=== PATIENT | male | born 1955 | race Caucasian/White ===

== ENCOUNTER → 2017-04-16 08:09 | Outpatient (CLI) | payer BC ==
[~2017-04-16 08:09] MED LIST: ATARAX 25 MG TA25 MG PO; ELIQUIS2.5 MG PO; KEFLEX500 MG PO; OXYCODONE HCL5 MG PO; TRIAMTERENE-HCT1 TA1 PO; UROCIT-K10 MEQ PO; VOLTAREN75 MG PO
[2017-05-25 15:54] VITALS: BMI 42.3
== END | disposition home or self-care (01) ==
LOC: D.RAD 04-12 10:00 → D.SP 04-12 10:00 → D.OPS 08:09 → D.RAD 09:00 → D.OPS 09:00
DX: M16.12 Unilateral primary osteoarthritis, left hip (principal); Z01.812 Encounter for preprocedural laboratory examination

== ENCOUNTER 2017-04-25 05:40 | Outpatient (CLI) | payer BC ==
[2017-04-24 12:24] LABS: HEMATOCRIT 49.3 % (42.0-54.0); HEMOGLOBIN 16.4 g/dL (13.5-17.5); MCH 30.6 pg (26.0-34.0); MCHC 33.3 g/dL (31.0-37.0); MEAN PLATELET VOLUME 9.6 fL (7.4-10.4); RBC 5.36 10x6/uL (4.20-6.10); RDW 12.8 % (11.5-14.5); WBC 6.9 10x3/uL (4.8-10.8)
[2017-04-24 12:42] LABS: INR 0.97 (0.85-1.17); PROTIME 12.7 SECONDS (11.6-15.0)
[2017-04-24 12:58] LABS: CALC OSMOLALITY 280 mosm/kg (275-300); CALCIUM 8.9 mg/dL (8.5-10.1); CARBON DIOXIDE 31.7 mmol/L (21.0-32.0); CHLORIDE - SERUM 100 mmol/L (98-107); CREATININE - SERUM 0.9 mg/dL (0.6-1.3); GLUCOSE 119 mg/dL (74-106); POTASSIUM - SERUM 4.1 mmol/L (3.5-5.1); SODIUM 139 mmol/L (136-145); UREA NITROGEN 19 mg/dL (7-18); eGFR NON AFRICAN AMERICAN > 90 mL/min (90-120)
[~2017-04-25] VITALS: Ht 185.4 cm; Wt 145.1 kg
--- NOTE | ~2017-04-25 | HEMODYNAMI ---
PATIENT:CHEO LAW MEDICAL RECORD: [id number] : 55 LOCATION:[facility] ADMISSION DATE: 04/25/17 Generatedon:04/25/20179:33 Patient name: CHEO LAW Patient #: [id number] SSN: DO B: 1955 Date of study: 04/25/2017 Page: Of Hemodynamic Procedure Report Patient Data Patient Demographics Procedure consent was obtained First Name: CHEO Gender: Male Last Name: ANI : 1955 Patient #: [id number] Age: 61 year(s) Race: Unknown Additional ID: [id number] Contact details Address: [address] [place] [address] State: [place] City: [place] Zip code: [address] Past Medical History Allergies: No known allergies Admission Admission Data Admission Date: 04/25/2017 Admission Time: 5:40 Procedure Procedure Types Cath Procedure Peripheral Cath Diagnostic Procedure Cath Peripheral Nephro Nephrostomy w/ Ureteral Stent Procedure Description Procedure Date Procedure Date: 04/25/2017 Procedure Start Time: 8:36 Procedure Staff Name Function Ricco Tamayo MD Performing Physician Marion Montesinos RT Monitor Tu Rubio RT Scrub Martha Robb RN Nurse Marion Montesinos RT Sales Service Professional Procedure Data Cath Procedure Fluoroscopy Diagnostic fluoroscopy Total fluoroscopy Time: time: 14.2 min 14.2 min Diagnostic fluoroscopy Total fluoroscopy dose: 816 dose: 816 mGy mGy Contrast Material Contrast Material Type Amount (ml) Isovue 300 55 Procedure Medications Medication Administration Route Dosage Oxygen NC 3 l/min Lidocaine 1% 20 Heparin Flush Bag added to field 1 bags (1000units/500ml NS) Versed I.V. 1 mg Fentanyl I.V. 50 mcg Versed I.V. 1 mg Fentanyl I.V. 50 mcg Versed I.V. 1 mg Fentanyl I.V. 50 mcg Versed I.V. 1 mg Fentanyl I.V. 50 mcg Hemodynamics Rest Pre Cath Intra NCS Post Cath Vital Signs Time Heart Resp SPO2 etCO2 NIBP (mmHg) Rhythm Pain Sedation Rate (ipm) (%) (mmHg) Status Level (bpm) 8:16:24 79 14 96 48.1 131/94(122) NSR 0 (11) 10(A) , No pain 8:21:23 83 8 96 38.3 Measuring NSR 0 (11) 10(A) , No pain 8:21:27 5 96 45.9 125/92(114) NSR 0 (11) 10(A) , No pain 8:25:31 102 21 96 45.1 128/90(104) NSR 0 (11) 10(A) , No pain 8:29:35 78 20 95 48.9 146/96(119) NSR 0 (11) 10(A) , No pain 8:34:34 82 20 99 46.7 Measuring NSR 0 (11) 10(A) , No pain 8:34:52 82 19 98 43.6 148/109(125) NSR 0 (11) 10(A) , No pain 8:39:06 71 18 98 53.4 162/109(138) NSR 0 (11) 10(A) , No pain 8:43:30 14 97 70.8 169/103(147) NSR 0 (11) 10(A) , No pain 8:47:57 85 14 96 51.2 166/112(138) NSR 0 (11) 10(A) , No pain 8:52:23 82 14 98 61.7 167/105(141) NSR 0 (11) 10(A) , No pain 8:56:45 81 16 97 61.7 162/112(144) NSR 0 (11) 10(A) , No pain 9:01:09 87 16 98 51.2 156/111(130) NSR 0 (11) 10(A) , No pain 9:05:29 89 17 45.2 152/115(127) NSR 0 (11) 10(A) , No pain 9:09:50 90 16 96 52.7 164/113(142) NSR 0 (11) 10(A) , No pain 9:14:14 83 13 98 63.2 177/119(143) NSR 0 (11) 10(A) , No pain 9:18:42 87 16 98 54.1 189/112(134) NSR 0 (11) 10(A) , No pain 9:23:12 84 17 98 54.1 164/107(138) NSR 0 (11) 10(A) , No pain 9:27:37 90 13 94 50.4 180/119(146) NSR 0 (11) 10(A) , No pain 9:32:03 94 14 97 38.4 179/118(155) NSR 0 (11) 10(A) , No pain Medications Time Medication Route Dose Verified Delivered Reason Notes Effec tiveness by by 8:25:39 Oxygen NC 3 Martha Martha used for l/min Cezar Cezar equipment service associate RN 8:26:01 Lidocaine 1% 20ml Martha Ricco for local vial Cezar Tamayo anesthetic RN 8:26:31 Heparin Flush added 1 Martha Ricco used for Bag to bags Cezar Tamayo procedure (1000units/500ml field RN NS) 8:35:37 Versed I.V. 1 mg Ricco Martha for Tamayo Cezar RN sedation 8:35:50 Fentanyl I.V. 50 Ricco Martha for mcg Tamayo Cezar RN sedation 8:39:15 Versed I.V. 1 mg Ricco Martha for Tamayo Cezar RN sedation 8:39:25 Fentanyl I.V. 50 Ricco Martha for mcg Tamayo Cezar RN sedation 9:09:28 Versed I.V. 1 mg Ricco Martha for Tamayo Cezar RN sedation 9:09:36 Fentanyl I.V. 50 Ricco Martha for mcg Tamayo Cezar RN sedation 9:26:39 Versed I.V. 1 mg Ricco Martha for Tamayo Cezar RN sedation 9:26:49 Fentanyl I.V. 50 Ricco Martha for mcg Tamayo Cezar RN sedation Procedure Log Time Note 7:33:30 Use device set IR Diagnostic 7:33:57 KIT, INTRODUCER ACCUSTICK II W/C opened to sterile field. 7:33:58 Sterile Angiographic Pack opened to sterile field. 7:33:59 Bag Decanter opened to sterile field. 7:59:53 Time tracking: Regular hours 8:06:54 Plan of Care:Hemodynamics will remain stable., Cardiac rhythm will remain stable., Comfort level will be maintained., Respiratory function will remain adequate., Patient/ family verbilizes understanding of procedure., Procedure tolerated without complication., Recovers from procedure without complications.. 8:07:00 Patient received from Outpatients to IR Alert and oriented. Tansferred to table prone position. 8:07:10 Signed procedure consent form obtained from patient. 8:07:17 H&P Date Dictated: 04/25/2017 Within 30 days and on chart.. 8:07:23 Pre-procedure instructions explained to patient. 8:07:23 Pre-op teaching completed and patient verbalized understanding. 8:07:26 Family in waiting room. 8:07:29 Patient NPO since Midnight. 8:07:38 Patient allergic to No known allergies 8:07:49 Is the patient allergic to Iodine/contrast media? No. 8:08:25 Is patient on blood thinner?No 8:08:28 Patient diabetic? No. 8:08:32 8:08:33 ----Pre-sedation anethsthesia assessment.---- 8:08:37 Previous problem with sedation/anesthesia? No ? 8:08:42 Snore? Yes 8:08:44 Sleep apnea? Yes 8:08:46 Deviated septum? No 8:08:49 Opens mouth fully? Yes 8:08:51 Sticks out tongue? Yes 8:08:54 Airway obstruction? No ? 8:08:59 Dentures? No ? 8:09:10 IV patent on arrival in right hand with 0.9% NaCl at [facility]. 8:09:33 Left abdomen area was prepped with chlora-prep and draped in sterile fashion 8:09:37 Alarms reviewed by Alexia Wing 8:09:38 Sharps counted by scrub and verified 8:09:39 8:15:29 ECG and BP/O2 sat monitors applied to patient. 8:15:30 Vital chart was started 8:19:34 Full Disclosure recording started 8:19:36 8::39 Oxygen 3 l/min NC was administered by Martha Robb RN; used for procedure; 8:26:01 Lidocaine 1% 20ml vial was administered by Ricco Tamayo MD; for local anesthetic; 8::31 Heparin Flush Bag (1000units/500ml NS) 1 bags added to field was administered by Ricco Tamayo MD; used for procedure; 8:34:13 Physician arrived 8:34:22 --------ALL STOP TIME OUT------ 8:34:24 Final Timeout: patient, procedure, and site verified with staff and physician. All members of the team are in agreement. 8:35:34 Sedation plan: IV Moderate Sedation Medication:Versed, Fentanyl 8:35:37 Versed 1 mg I.V. was administered by Martha Robb RN; for sedation; 8:35:40 Procedure started. 8:35:50 Fentanyl 50 mcg I.V. was administered by Martha Robb RN; for sedation; 8:36:00 Local anesthetic to lt renal area with Lidocaine 1% by Ricco Tamayo MD.INITIAL ACCESS ONLY 8:36:25 Terumo 4FR Straight 65CM glide catheter opened to sterile field. 8:39:15 Versed 1 mg I.V. was administered by Martha Robb RN; for sedation; 8:39:25 Fentanyl 50 mcg I.V. was administered by Martha Robb RN; for sedation; 9:03:08 EV3 NITINOL .018 80CM guide wire opened to sterile field. 9:09:28 Versed 1 mg I.V. was administered by Martha Robb RN; for sedation; 9:09:36 Fentanyl 50 mcg I.V. was administered by Martha Robb RN; for sedation; 9:26:34 Procedure ended.(Physican Out) 9:26:39 Versed 1 mg I.V. was administered by Martha Robb RN; for sedation; 9:26:49 Fentanyl 50 mcg I.V. was administered by Martha Robb RN; for sedation; 9:26:54 Fluoroscopy time 14.20 minutes. 9:27:00 Fluoroscopy dose: 816 mGy 9:27:00 Flurop Dose total: 816 9:27:04 Contrast amount:Isovue 300 55ml. 9:27:29 Procedure and supply charges have been captured, reviewed, submitted and are correct. 9:33:49 Vital chart was stopped Device Usage Item Name Manufacture Quantity Catalog Hospital Part Current Minimal Lot# / Number Charge Number Stock Stock Serial# Code Abhay WESLEY [id number] 5 INTRODUCER Scientific ACCUSTICK II W/C Sterile Cardinal 1 [id number] 5 Angiographic Health Pack Bag Decanter Microtek 1 2001S [id number] 5 (2001S) [employer] Terumo 4FR Terumo 1 [id number] 5 Straight 65CM glide catheter EV3 NITINOL Ev3 1 [id number] 5 .018 80CM guide wire Signature Audit [place] Stage Time Signature Unsigned Intra-Procedure 04/25/2017 Marion Montesinos 9:33:46 AM RT(R) Signatures Monitor : Marion Montesinos RT Signature : Date : Time : [facility] [address] [facility] [place] [id number]
[~2017-04-25 05:40] MED LIST changes: -ATARAX 25 MG TA25 MG PO; -ELIQUIS2.5 MG PO; -KEFLEX500 MG PO; -OXYCODONE HCL5 MG PO; -UROCIT-K10 MEQ PO
[2017-04-25 07:44] VITALS: BP 95/64; Ht 185.4 cm; Wt 145.1 kg
--- NOTE | 2017-04-25 12:17 | NUR ---
LEFT FLANK DRESSING C/D/I. C/O LEFT TESTICLE PAIN, DR ZAMUDIO CALLED AND INFORMED OF PAIN POST NEPRHO TUBE PLACEMENT AND UPCOMING SURGERY, ORDERS RECEIVED.
--- NOTE | 2017-04-25 14:00 | NUR ---
ALL VITAL SIGNS AND ASSESSMENT CHARTED UNDER OR NOTES. DR KLEIN IN, STATES THE KIDNEY STONE CAN DISSOLVE WITH MEDICATION. PT AGREES TO WAIT ON SURGERY AND TRY MEDICINE FIRST. WIRE REMOVED PER DR KLEIN AND BANDAID APPLIED. NO BLEEDING NOTED. IV REMOVED INTACT. DISCHARGE INSTRUCTIONS GIVEN.
== END 2017-04-25 14:20 | disposition home or self-care (01) ==
LOC: D.OPS 05:40 → EDSTATUS 08:00 → D.SP 08:00 → D.OPS 08:00 → D.PAN 08:00 → D.OPS 10:15
PROVIDERS: Anesthesiology
DX: N20.1 Calculus of ureter (principal); Z01.812 Encounter for preprocedural laboratory examination

== ENCOUNTER → 2017-05-09 13:44 | Outpatient (CLI) | payer BC ==
[2017-04-25 07:44] VITALS: BMI 42.3
[~2017-05-09 13:44] MED LIST changes: +ATARAX 25 MG TA25 MG PO; +ELIQUIS2.5 MG PO; +KEFLEX500 MG PO; +OXYCODONE HCL5 MG PO; +UROCIT-K10 MEQ PO
== END | disposition home or self-care (01) ==
LOC: D.LABREF 13:44
DX: M16.12 Unilateral primary osteoarthritis, left hip (principal); Z11.8 Encounter for screening for other infectious and parasitic diseases

== ENCOUNTER → 2017-05-16 09:06 | Outpatient (CLI) | payer BC ==
[2017-04-25 07:44] VITALS: BMI 42.3
== END | disposition home or self-care (01) ==
LOC: D.CT 09:06
DX: N20.0 Calculus of kidney (principal)

== ENCOUNTER 2017-05-16 10:00 | Inpatient (IN) | payer BC ==
[~2017-05-16] VITALS: Ht 185.4 cm; Wt 145.5 kg
--- NOTE | ~2017-05-16 | OP ---
PATIENT NAME: CHEO LAW MEDICAL RECORD: [id number] :55 LOCATION:[id number] ADMISSION DATE:05/25/17 SURGEON: RICCO ELLISON DO DATE OF OPERATION: 05/25/2017 PROCEDURE PERFORMED: Left total hip arthroplasty. PREOPERATIVE DIAGNOSIS: Severe left hip osteoarthritis. POSTOPERATIVE DIAGNOSIS: Severe left hip osteoarthritis. INDICATIONS: Mr. Law is a 61-year-old male that had left hip pain for quite some time. He has been struggling with this and even had an intra-articular hip injection that did not help approximately 6 weeks ago and it did not help his pain whatsoever. He is tired of dealing with pain and wanted something done. His BMI was right at my cutoff, which is 40 and he has BMI of 42. I told him he needs to lose some weight and as long as he showed effort of losing weight, I would do his hip. I saw him back after hip injections and this had happened so we decided to his hip. He is aware of the risks and benefits of procedure. Due to his weight, he has increased risk for infection and difficulty of the case. SURGEON: Ricco Ellison DO COMPLICATIONS: None. ESTIMATED BLOOD LOSS: 250 mL. DESCRIPTION OF PROCEDURE: The patient was taken to the operative suite, laid in supine position, given 2 grams Ancef preoperatively. The timeout was performed and everyone was in agreement to the correct side, site, and patient. After the timeout was performed, the patient was then given antibiotics. The patient was given a gram of TXA. He was prepped and draped in the left hip in sterile fashion and the incision then commenced over the tensor fascia jae. The fascia was raised anteriorly, the muscle belly posteriorly, and then the interval just below the rectus was incised and the ascending branch of the lateral femoral circumflex artery as well as the 2 concomitant veins were tied off and then the Aquamantys was used on them to coagulate them and then that was cut. The hip capsule was then exposed and Hohmanns were used around the neck of the femur and a capsulotomy was performed and the retractor was then placed inside the knee capsule and the femoral neck was cut. After the femoral neck was cut, the head was removed with somewhat of difficulty due to the large osteophytes around the hip and on the femoral head itself. Once this was removed, we then reamed the acetabulum, first medializing and then up to a size 56. This was done under fluoroscopy. A 56 cup was put in, a dual mobility cup was put in and seen to be in very good position on x-ray. The attention was then drawn to the femur and the femur was exposed and broaching was somewhat difficult due to the size of the patient's stomach. We did broach up to a 20 and got the hip reduced for -6 neck and a 28 head. This seemed to be a decent length and once this was done, we put in the implant. The implants were put in and the hip was reduced. X-rays were taken and seemed to be in good length on the femur and the wound was irrigated thoroughly. Brisk bleeding was seen at that time. Vancomycin powder was then placed into the wound as well as Josefa. The hip capsule was not closed due to the stability of the hip. X-rays were taken of the femur as well and no fractures were seen in the femur. Once this was done and vancomycin and Josefa was put in, the tensor fascia jae fascia was closed with a #1 Vicryl and OPERATIVE REPORT [id number] CHEO LAW [id number] and a running stitch and then the skin after being irrigated was closed with 2-0 Vicryl in an inverted interrupted fashion and Prineo was placed on the skin. Adaptic, Telfa, and Tegaderm were placed over the wound. The patient was awakened and taken to recovery in stable condition. Blood loss approximately 250 mL. TRANSINT:[id number] Voice Confirmation ID: [id number] DOCUMENT ID: [id number] RICCO ELLISON DO at 1729 CC: [id number] DICTATION DATE: 05/25/17 1432 AGRICULTURE CONSULTANT: 05/25/[address] [facility] [facility] [place] [id number] [place] [id number]
[~2017-05-16 10:00] MED LIST changes: -ATARAX 25 MG TA25 MG PO; -ELIQUIS2.5 MG PO; -KEFLEX500 MG PO; -OXYCODONE HCL5 MG PO; -UROCIT-K10 MEQ PO
[2017-05-22] MEDS ORDERED: UROCIT-K10 MEQ PO (14:46)
[2017-05-23 11:53] LABS: BASOPHILS 0.3 % (0-2); EOSINOPHILS 1.4 % (0-7); HEMATOCRIT 50.1 % (42.0-54.0); IMMATURE GRANULOCYTES 0.3 % (0-5); LYMPHOCYTES 21.7 % (15-50); MCH 31.1 pg (26.0-34.0); MCHC 33.9 g/dL (31.0-37.0); MCV 91.6 fL (80.0-100.0); MONOCYTES 8.3 % (2-11); RBC 5.47 10x6/uL (4.20-6.10); RDW 12.7 % (11.5-14.5); WBC 7.9 10x3/uL (4.8-10.8)
[2017-05-23 11:54] LABS: PLATELET COUNT 200 10x3/uL (130-400)
[2017-05-23 11:58] LABS: INR 0.94 (0.85-1.17); PROTIME 12.2 SECONDS (11.6-15.0)
[2017-05-23 12:01] LABS: CALC OSMOLALITY 283 mosm/kg (275-300); CALCIUM 9.6 mg/dL (8.5-10.1); CARBON DIOXIDE 34.3 mmol/L (21.0-32.0); CHLORIDE - SERUM 100 mmol/L (98-107); GLUCOSE 162 mg/dL (74-106); SODIUM 140 mmol/L (136-145); UREA NITROGEN 16 mg/dL (7-18); eGFR NON AFRICAN AMERICAN 81 mL/min (90-120)
[2017-05-23 12:06] LABS: APPEARANCE CLEAR (CLEAR); COLOR YELLOW (YELLOW)
[2017-05-23 12:07] LABS: BILIRUBIN NEGATIVE (NEGATIVE); GLUCOSE NEGATIVE (NEGATIVE); KETONE NEGATIVE (NEGATIVE); NITRITE NEGATIVE (NEGATIVE); PROTEIN NEGATIVE (NEGATIVE); UROBILINOGEN NORMAL (NORMAL)
[2017-05-25 08:46] VITALS: BP 111/54; BMI 42.0
[2017-05-25 15:49] VITALS: BP 140/86
[2017-05-25 15:54] VITALS: BP 140/86; Ht 185.4 cm; Wt 145.5 kg
[2017-05-25 21:23] VITALS: BP 133/79
[2017-05-26 01:06] VITALS: BP 112/62
[2017-05-26 04:46] VITALS: BP 129/72
[2017-05-26 07:31] LABS: BASOPHILS 0 % (0-2); EOSINOPHILS 0 % (0-7); HEMATOCRIT 38.6 % (42.0-54.0); HEMOGLOBIN 13.1 g/dL (13.5-17.5); IMMATURE GRANULOCYTES 0.2 % (0-5); LYMPHOCYTES 8.4 % (15-50); MCH 30.5 pg (26.0-34.0); MCHC 33.9 g/dL (31.0-37.0); MCV 89.8 fL (80.0-100.0); MEAN PLATELET VOLUME 9.4 fL (7.4-10.4); MONOCYTES 10.1 % (2-11); NEUTROPHILS 81.3 % (40-80); PLATELET COUNT 185 10x3/uL (130-400); RDW 12.9 % (11.5-14.5); WBC 12.9 10x3/uL (4.8-10.8)
[2017-05-26 08:08] LABS: ALBUMIN 3.1 g/dL (3.4-5.0); ANION GAP 11.6 mmol/L (8-16); BILIRUBIN - TOTAL 0.47 mg/dL (0.2-1.3); CALCIUM 8.6 mg/dL (8.5-10.1); CARBON DIOXIDE 28.8 mmol/L (21.0-32.0); CREATININE - SERUM 1.3 mg/dL (0.6-1.3); POTASSIUM - SERUM 4.4 mmol/L (3.5-5.1); PROTEIN - SERUM 5.8 g/dL (6.4-8.2)
[2017-05-26 08:45] VITALS: BP 112/59
[2017-05-26 12:45] VITALS: BP 125/76
[2017-05-26 17:29] VITALS: BP 118/72
[2017-05-27] VITALS: BP 130/81
[2017-05-27 04:00] VITALS: BP 118/70
[2017-05-27 05:08] LABS: HEMATOCRIT 37.4 % (42.0-54.0); HEMOGLOBIN 12.2 g/dL (13.5-17.5); MCHC 32.6 g/dL (31.0-37.0); MEAN PLATELET VOLUME 9.4 fL (7.4-10.4); RBC 4.06 10x6/uL (4.20-6.10); RDW 13.2 % (11.5-14.5)
[2017-05-27 05:12] LABS: MCV 92.1 fL (80.0-100.0); WBC 9.4 10x3/uL (4.8-10.8)
[2017-05-27 05:16] LABS: HEMOGLOBIN A1C 7.2 % (4.8-6.0)
[2017-05-27 05:24] LABS: CALC OSMOLALITY 286 mosm/kg (275-300); CALCIUM 8.6 mg/dL (8.5-10.1); CARBON DIOXIDE 34.7 mmol/L (21.0-32.0); CHLORIDE - SERUM 102 mmol/L (98-107); GLUCOSE 177 mg/dL (74-106); POTASSIUM - SERUM 4.1 mmol/L (3.5-5.1); SODIUM 140 mmol/L (136-145); UREA NITROGEN 23 mg/dL (7-18); eGFR NON AFRICAN AMERICAN 81 mL/min (90-120)
[2017-05-27] MEDS ORDERED: ELIQUIS2.5 MG PO (08:52)
[2017-05-27] MEDS ORDERED: OXYCODONE HCL5 MG PO (08:53)
[2017-05-27] MEDS ORDERED: ATARAX 25 MG TA25 MG PO (08:53)
[2017-05-27] MEDS ORDERED: KEFLEX500 MG PO (08:54)
[2017-05-27 10:47] VITALS: BP 100/61
== END 2017-05-27 17:00 | disposition home health service (06) | DRG 470 ==
LOC: D.SDCHOLD 05-25 05:14 → D.MS 05-25 15:10
PROVIDERS: Family Medicine; Orthopaedic Surgery
PROC: 0SRB0JZ Replacement of Left Hip Joint with Synthetic Substitute, Open Approach (ICD-10-PCS; principal; 2017-05-25 10:15)
DX: M16.12 Unilateral primary osteoarthritis, left hip (principal); Z68.41 Body mass index [BMI] 40.0-44.9, adult; I10 Essential (primary) hypertension; M25.762 Osteophyte, left knee; E66.9 Obesity, unspecified